=== PATIENT | female | born 1985 | race Two or more races ===

== ENCOUNTER 2020-04-04 17:48 | Emergency (ER) | payer BC ==
[~2020-04-04] VITALS: Ht 160 cm; Wt 56.8 kg
[2020-04-04 17:49] VITALS: BP 119/82
--- NOTE | 2020-04-04 17:50 | NUR ---
BIBA BLS TAKEN TO BED 4
--- NOTE | 2020-04-04 17:59 | NUR ---
dr palm at bedside evaluating pt.
[2020-04-04] MEDS ORDERED: ACETAMINOPHEN EXTRA STRENGTH 500 MG TAB PO ONE (18:05)
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
--- NOTE | 2020-04-04 18:29 | NUR ---
PT TO CT SCAN VIA WHEEL CHAIR
--- NOTE | 2020-04-04 18:43 | NUR ---
PT BACK FROM CT SCAN VIA WHEELCHAIR.
--- NOTE | 2020-04-04 19:00 | NUR ---
DR CHOW AT BEDSIDE REEVALUATING PT.
[2020-04-04 19:15] VITALS: BP 119/82
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
== END 2020-04-04 19:16 | disposition home or self-care (01) ==
LOC: MED 17:48
DX: S09.8XXA Other specified injuries of head, initial encounter (principal); Z88.5 Allergy status to narcotic agent; V49.88XA Car occupant (driver) (passenger) injured in other specified transport accidents, initial encounter; Y93.89 Activity, other specified; Y92.89 Other specified places as the place of occurrence of the external cause; Y99.8 Other external cause status
CPT/HCPCS: 70450; 71045; 72125; 81002; 81025; 99285; Q0092